=== PATIENT | male | born 1965 | race Asian ===

== ENCOUNTER 2020-10-25 05:41 | Inpatient (IN) | payer BC ==
[~2020-10-25] VITALS: Ht 172.7 cm; Wt 108.9 kg
[2020-10-25] MEDS ORDERED: PANTOPRAZOLE 40MG DR TABLET PO ONE (07:15)
[2020-10-25 08:58] LABS: BASOPHILS % 0.6 % (0.0-2.0); EOSINOPHILS % 0.2 % (0.0-5.0); HEMATOCRIT. 41.9 % (42.0-52.0); HEMOGLOBIN. 14.2 g/dL (14.0-18.0); LYMPHOCYTES % 9.3 % (20.0-50.0); MEAN CORPUSCULAR HEMOGLOBIN 31.1 pg (28.0-32.0); MEAN CORPUSCULAR VOLUME 92.1 fL (80.0-94.0); MONOCYTES % 8.7 % (2.0-8.0); NEUTROPHILS % 81.2 % (40.0-76.0); PLATELET 164 x1000/uL (130-400); RED BLOOD CELL COUNT 4.55 mill/uL (4.7-6.1); RED CELL DISTRIBUTION WIDTH 13.5 % (11.6-14.6)
[2020-10-25 09:02] LABS: CHLORIDE 102 mEq/L (98-107)
[2020-10-25 09:08] LABS: CLARITY URINE CLEAR (CLEAR); COLOR URINE YELLOW (YELLOW); KETONES URINE NEGATIVE (NEGATIVE); LEUKOCYTE ESTERASE URINE NEGATIVE (NEGATIVE); NITRITE URINE NEGATIVE (NEGATIVE); OCCULT BLOOD URINE NEGATIVE (NEGATIVE); PROTEIN URINE NEGATIVE (NEGATIVE); SPECIFIC GRAVITY URINE 1.008 (1.005-1.030)
[2020-10-25] MEDS ORDERED: METRONIDAZOLE 500 MG PREMIX 100 ML IV ONE (12:00)
[2020-10-25] MEDS ORDERED: CEFTRIAXONE 1 G PREMIX 50 ML IV ONE (12:00)
[2020-10-25 15:05] VITALS: BP 139/84
[2020-10-25] MEDS ORDERED: AMLO10TA80 PO (15:26)
[2020-10-25] MEDS ORDERED: LISI20TA31 PO (15:26)
[2020-10-25] MEDS ORDERED: CLONIDINE 0.1MG TABLET PO PRN (15:30)
[2020-10-25] MEDS ORDERED: MAGNESIUM/ALUMINUM HYDROXIDE/SIMETHICONE 30ML UDC PO PRN (15:30)
[2020-10-25] MEDS ORDERED: DIPHENHYDRAMINE 50MG/ML VIAL IV PRN (15:30)
[2020-10-25] MEDS ORDERED: ACETAMINOPHEN 325MG TABLET PO PRN ×2 (15:30)
[2020-10-25] MEDS ORDERED: ONDANSETRON HCL 4MG/2ML INJ IV PRN (15:30)
[2020-10-25] MEDS: PANTOPRAZOLE SODIUM 40 MG/VIAL IV SCH (16:25)
[2020-10-25] MEDS: SUCRALFATE 1 G/10 ML UDC PO SCH ×2 (16:25→22:07)
[2020-10-25] MEDS: DEXT 5%/0.45% NACL 1000ML 1,000 ML IV SCH (17:06)
[2020-10-25 20:00] VITALS: BP 123/76
[2020-10-26] VITALS: BP 127/84
[2020-10-26] MEDS: DEXT 5%/0.45% NACL 1000ML 1,000 ML IV SCH ×2 (01:30→11:25)
[2020-10-26 04:00] VITALS: BP_SYST 127
[2020-10-26] MEDS: SUCRALFATE 1 G/10 ML UDC PO SCH ×4 (04:44→23:35)
[2020-10-26 06:25] LABS: CHLORIDE 105 mEq/L (98-107)
[2020-10-26 07:04] LABS: BASOPHILS % 0.8 % (0.0-2.0); EOSINOPHILS % 5.8 % (0.0-5.0); HEMATOCRIT. 39.9 % (42.0-52.0); HEMOGLOBIN. 13.6 g/dL (14.0-18.0); LYMPHOCYTES % 20.7 % (20.0-50.0); MEAN CORPUSCULAR HEMOGLOBIN 31.5 pg (28.0-32.0); MEAN CORPUSCULAR VOLUME 92.5 fL (80.0-94.0); MEAN PLATELET VOLUME 10.8 fl (7.4-10.4); MONOCYTES % 9.2 % (2.0-8.0); NEUTROPHILS % 63.5 % (40.0-76.0); PLATELET 147 x1000/uL (130-400); RED BLOOD CELL COUNT 4.31 mill/uL (4.7-6.1); RED CELL DISTRIBUTION WIDTH 13.8 % (11.6-14.6)
[2020-10-26 08:00] VITALS: BP 132/81
[2020-10-26] MEDS: PANTOPRAZOLE SODIUM 40 MG/VIAL IV SCH (10:32)
[2020-10-26 12:00] VITALS: BP 117/79
[2020-10-26 16:00] VITALS: BP 130/86
[2020-10-26 20:00] VITALS: BP 138/83
[2020-10-27] VITALS: BP 129/82
[2020-10-27 04:00] VITALS: BP 142/81
[2020-10-27] MEDS: SUCRALFATE 1 G/10 ML UDC PO SCH ×4 (04:11→21:39)
[2020-10-27] MEDS ORDERED: FENTANYL CITRATE/PF 50MCG/ML 5ML VIAL ONE (07:16)
[2020-10-27] MEDS ORDERED: MIDAZOLAM HCL 2 MG/2 ML VIAL ONE (07:16)
[2020-10-27] MEDS ORDERED: PROPOFOL 200MG/20ML VIAL IV ONE (07:16)
[2020-10-27] MEDS ORDERED: NEOSTIGMINE METHYLSULFATE 1MG/ML 10 ML VIAL ONE (07:16)
[2020-10-27] MEDS ORDERED: LIDOCAINE HCL 1% 20ML VIAL (Pyxis) INJ ONE (07:17)
[2020-10-27] MEDS ORDERED: METOCLOPRAMIDE HCL 10MG/2ML VIAL ONE (07:17)
[2020-10-27] MEDS ORDERED: SUCCINYLCHOLINE CHLORIDE 200MG/10ML IV ONE (07:17)
[2020-10-27] MEDS ORDERED: GLYCOPYRROLATE 0.2 MG/ML 2ML VIAL ONE ×2 (07:17→07:22)
[2020-10-27] MEDS ORDERED: CEFAZOLIN SODIUM 1000MG/VIAL ONE ×2 (07:17→07:42)
[2020-10-27] MEDS ORDERED: ONDANSETRON HCL 4MG/2ML INJ ONE (07:17)
[2020-10-27] MEDS ORDERED: ROCURONIUM BROMIDE 10MG/ML VIAL 5ML IV ONE (07:18)
[2020-10-27 07:19] LABS: BASOPHILS % 0.8 % (0.0-2.0); HEMATOCRIT. 40.1 % (42.0-52.0); HEMOGLOBIN. 13.8 g/dL (14.0-18.0); INR 1.1; LYMPHOCYTES % 24.8 % (20.0-50.0); MEAN CORPUSCULAR HEMOGLOBIN 32.2 pg (28.0-32.0); MEAN CORPUSCULAR VOLUME 93.8 fL (80.0-94.0); MEAN PLATELET VOLUME 10.8 fl (7.4-10.4); MONOCYTES % 8.9 % (2.0-8.0); NEUTROPHILS % 59.5 % (40.0-76.0); PARTIAL THROMBOPLASTIN TIME 27.5 sec (23.4-31.0); PLATELET 142 x1000/uL (130-400); PROTHROMBIN TIME 11.4 sec (9.6-11.0); RED BLOOD CELL COUNT 4.27 mill/uL (4.7-6.1); RED CELL DISTRIBUTION WIDTH 13.9 % (11.6-14.6)
[2020-10-27] MEDS ORDERED: SKIN ADHESIVE 0.7 GM EA TOP ONE (07:19)
[2020-10-27] MEDS ORDERED: BUPIVACAINE HCL 0.5% (5MG/ML) 50ML ONE (07:20)
[2020-10-27] MEDS ORDERED: LIDOCAINE HCL 2% JELLY 5ML ONE (07:25)
[2020-10-27] MEDS ORDERED: MORPHINE SULFATE 2 MG/ML CPJ (NOT FOR IM USE) IV PRN ×2 (07:30→09:00)
[2020-10-27] MEDS: DEXT 5%/0.45% NACL 1000ML 1,000 ML IV SCH (07:30)
[2020-10-27] MEDS ORDERED: ONDANSETRON HCL 4MG/2ML INJ IV PRN ×2 (07:30→09:00)
[2020-10-27] MEDS ORDERED: HYDROMORPHONE HCL/PF 2MG/ML CPJ IV PRN (07:30)
[2020-10-27] MEDS ORDERED: MEPERIDINE HCL/PF 25MG/ML CPJ IV PRN (07:30)
[2020-10-27] MEDS ORDERED: SODIUM CHLORIDE 0.9% 1,000 ML IV ONE (07:30)
[2020-10-27] MEDS ORDERED: EPHEDRINE SULFATE 50MG/ML VIAL ONE (08:14)
[2020-10-27] MEDS ORDERED: MORPHINE SULFATE 4 MG/ML CPJ (NOT FOR IM USE) IV PRN (09:00)
[2020-10-27] MEDS ORDERED: HYDROCODONE/ACETAMINOPHEN 5/325MG TABLET PO PRN (09:00)
[2020-10-27] MEDS: PANTOPRAZOLE SODIUM 40 MG/VIAL IV SCH (09:00)
[2020-10-27 12:00] VITALS: BP 117/72
[2020-10-27] MEDS: HYDROCODONE/ACETAMINOPHEN 5/325MG TABLET PO PRN ×3 (12:20→21:03)
[2020-10-27] MEDS: DEXT 5%/0.45% NACL KCL 20MEQ/L 1,000 ML IV SCH ×2 (12:20→21:03)
[2020-10-27 16:00] VITALS: BP 111/69
[2020-10-27] MEDS: SODIUM CHLORIDE 0.9% INJ 3ML FLUSH IVF SCH ×2 (16:53→21:04)
[2020-10-27 20:00] VITALS: BP 123/58
[2020-10-28] VITALS: BP 125/71
[2020-10-28 04:00] VITALS: BP 126/75
[2020-10-28] MEDS: SUCRALFATE 1 G/10 ML UDC PO SCH ×2 (05:25→09:35)
[2020-10-28] MEDS: SODIUM CHLORIDE 0.9% INJ 3ML FLUSH IVF SCH (05:25)
[2020-10-28] MEDS: DEXT 5%/0.45% NACL KCL 20MEQ/L 1,000 ML IV SCH (06:12)
[2020-10-28 08:00] VITALS: BP 147/87
[2020-10-28] MEDS: PANTOPRAZOLE SODIUM 40 MG/VIAL IV SCH (09:35)
[2020-10-28 11:02] VITALS: BP 149/86
== END 2020-10-28 11:35 | disposition home or self-care (01) | DRG 419 ==
LOC: ER 05:41 → 6EST 11:59 → EDBEDREQ 12:14 → EDBEDREQTM 12:14 → ENRESERV 12:23 → 6EST 14:41
PROVIDERS: ADMIT Internal Medicine; ATTEND Internal Medicine
PROC: 0FT44ZZ Resection of Gallbladder, Percutaneous Endoscopic Approach (ICD-10-PCS; principal; 2020-10-27)
DX: K80.10 Calculus of gallbladder with chronic cholecystitis without obstruction (principal); K70.0 Alcoholic fatty liver; K82.8 Other specified diseases of gallbladder; Z20.822 Contact with and (suspected) exposure to COVID-19; I10 Essential (primary) hypertension; R74.01 Elevation of levels of liver transaminase levels; Z83.3 Family history of diabetes mellitus; Z98.84 Bariatric surgery status
CPT/HCPCS: 36415; 71045; 74176; 74181; 76700; 80048; 80053; 80076; 81003; 82248; 83880; 84484; 85025; 87426; 88304; 93005; 99285; C9113; J0330; J0690; J0696; J1170; J2175; J2250; J2405; J2704; J2710; J2765; J3010; J3490; J7030; J7040